=== PATIENT | male | born 1960 | race Caucasian/White ===

== ENCOUNTER 2024-04-25 00:41 | Emergency (ER) | payer MEDICAID, OTHER ==
[~2024-04-25] VITALS: Ht 172.7 cm; Wt 80.0 kg
[~2024-04-25 00:41] MED LIST: KEPP500 MT; LIP40 MT
[2024-04-25 00:45] VITALS: TEMP 98.3; O2SAT 98
[2024-04-25] MEDS: LEVETIRACETAM 1000MG PREMIX 100 ML IV ONE (02:49)
[2024-04-25 05:00] VITALS: BP 125/57; PULSE 51; RESP 18
== END 2024-04-25 05:00 | disposition home or self-care (01) ==
LOC: ER 00:46
DX: R56.9 Unspecified convulsions (principal)
CPT/HCPCS: 99285; 96365; J1953